=== PATIENT | female | born 2000 | race Hispanic/Latino ===

== ENCOUNTER 2023-03-15 16:55 | Emergency (ER) | payer SELFPAY ==
[2023-03-15 17:11] VITALS: BP 151/108; PULSE 113; RESP 18; TEMP 36.5; O2SAT 96
--- NOTE | 2023-03-15 19:37 | PC.NURSE ---
Pt called for blood draw, no answer
--- NOTE | 2023-03-15 19:51 | PC.NURSE ---
Patient did not answer page to come to a room X2
== END 2023-03-15 19:50 | disposition left against medical advice (07) ==
DX: R11.2 Nausea with vomiting, unspecified (principal)
CPT/HCPCS: 99199

== ENCOUNTER 2024-02-11 22:21 | Emergency (ER) | payer SELFPAY ==
--- NOTE | ~2024-02-11 | US_ITS ---
EXAMINATION: US OB <=14 wk fetus w TV DATE: 02/12/2024 04:30 INDICATION: Abdominal pain during at the transition from 1st-2nd trimester TECHNIQUE: Real-time pelvic ultrasound utilizing both a transvaginal and transabdominal probe was pe rformed. The interpreting radiologist was not present for the study. COMPARISON: None. FINDINGS: The uterus measures 13.9 x 7.7 x 8.7 cm. There is an intrauterine gestational sac. A yolk sac and fe cheryl pole are identified. The crown rump length measures 4.7 cm, which correlates with an estimated ge stational age of 11 weeks and 4 days. heart motion is identified measuring 175 beats per minute (bpm) by M-mode Doppler. The right ovary measures 3.4 x 2.3 x 2.2 cm. The left ovary measures 3.2 x 1.6 x 1.5 cm. After flow i dentified in both ovaries on color Doppler. There is no free fluid in the pelvis. IMPRESSION: 1. Single living fetus with heart rate of 175 bpm. 2. Gestational age by ultrasound of 11 weeks 4 day(s) +/- 7 day(s) with ultrasound estimated date of delivery (JOS[facility]) of 08/29/2024. Reviewed, dictated and finalized at location A. IMPRESSION: 1. Single living fetus with heart rate of 175 bpm. 2. Gestational age by ultrasound of 11 weeks 4 day(s) +/- 7 day(s) with ultras ound estimated date of delivery ([facility]OS[facility]) of 08/29/2024.
[2024-02-11 22:31] VITALS: BP 141/57; PULSE 81; RESP 17; TEMP 36.7; O2SAT 100
[2024-02-12 01:17] LABS: Basophils Percent Auto 0.3 % (0.2-1.2); Eosinophils Absolute Auto 0.2 K/mm3 (0-0.3); Eosinophils Percent Auto 1.8 % (0-4.4); Hematocrit 36.6 % (37.0-47.0); Immature Granulocyte Absolute 0.07 K/mm3 (0.00-0.031); Immature Granulocyte Percent A 0.7 % (0-0.5); Mean Corpuscular HGB Conc 32.8 g/dl (32-36); Mean Corpuscular Hemoglobin 28.5 pg (26-34); Mean Corpuscular Volume 86.9 fl (80-100); Mean Platelet Volume 11.9 fl (7.4-10.4); Monocytes Absolute Auto 0.9 K/mm3 (0.1-0.6); Neutrophils Absolute Auto 5.7 K/mm3 (1.3-6.7); Neutrophils Percent Auto 59.2 % (45.5-73.1); Platelet Count Result 214 k/mm3 (150-375); Red Blood Count 4.21 M/mm3 (4.2-5.4); Red Cell Distribution Width 13.5 % (11.5-14.5); White Blood Count 9.7 K/mm3 (4.5-10.0)
[2024-02-12 01:26] LABS: Alanine Aminotransferase 22 U/L (6-35); Albumin Level 4.4 g/dL (3.5-5.1); Alkaline Phosphatase 55 U/L (38-126); Anion Gap 9 mmol/L (4-12); Aspartate Amino Transferase 21 U/L (14-36); Bilirubin,Total 0.4 mg/dL (0.2-1.3); Blood Urea Nitrogen 12 mg/dL (7-17); Calcium 9.4 mg/dL (8.4-10.2); Carbon Dioxide 24 mmol/L (22-30); Chloride 104 mmol/L (98-107); Estimated CRCL calculation 152 ml/min; Estimated Glomerular Filt Rate > 60; Glucose 92 mg/dL (65-110); Lipase 87 U/L (23-300); Potassium 3.6 mmol/L (3.4-5.0); Sodium 137 mmol/L (137-145)
[2024-02-12 01:37] LABS: Appearance Urine Turbid (Clear); Bacteria Urine 1+ /hpf; Bilirubin Urine Negative (Negative); Blood Urine Negative (Negative); Color Urine Yellow (Yellow); Glucose Urine UA Negative (Negative); Ketones Urine Trace mg/dL (Negative); Leukocyte Esterase Ur Negative LEU/UL (Negative); Nitrate Urine Negative (Negative); Non Pathogenic Casts 0-2; Protein Urine Trace mg/dL (Negative); RBC Urine 0-2 /hpf (0-2); Specific Grav Ur 1.029 (1.001-1.035); Squamous Epithelial Cell Urine Occasional /hpf (Few); Urobilinogen Urine 0.2 mg/dL (<2.0); pH Urine 5.5 (5.0-9.0)
[2024-02-12 01:41] LABS: SPREG INTERNAL CONTROL Positive; Serum Qual hCG Positive
[2024-02-12 01:43] LABS: Add Urine Microscopic? YES
[2024-02-12] MEDS: SODIUM CHLORIDE 0.9% IV 1,000 ML 999 ML IV CONT (02:02)
[2024-02-12] MEDS: METOCLOPRAMIDE HCL INJ 10 MG/2 ML VIAL IV PUSH (02:02)
--- NOTE | 2024-02-12 03:58 | ED.GENADULT ---
HPI - General Adult General Chief complaint: Abdominal Pain Stated complaint: left sided abd pain, fever, n/v/d Time Seen by Provider: 02/12/24 01:41 History of Present Illness HPI narrative: Patient with female presents emergency department with chief complaint abdominal pain nausea vomiting. Patient reports he is unsure last menstrual period reports that she has a frequent dry her abdomen patient does report that she has had some diarrhea the patient states she has had no vaginal bleeding does report full her urine has been cloudy. Related Data Allergies Allergy/AdvReac Type Severity Reaction Status Date / Time No Known Allergies Allergy Verified 02/11/24 22:23 Review of Systems Review of Systems: A 10 system review of systems was completed on the patient and is negative except for what is stated in the HPI. Nursing and ancillary documentation was reviewed. Exam Narrative: GENERAL: Well-appearing, well-nourished, and in no acute distress. HEAD: Normocephalic, atraumatic. EYES: PERRLA and EOMI. ENT: Nares clear, no rhinorrhea or epistaxis. Mucous membranes moist. NECK: Supple. CHEST: Clear to auscultation. No respiratory distress. HEART: Regular rate and rhythm. No murmur heard. Normal peripheral pulses. ABDOMEN: Soft, diffusely tender to palpation, nondistended, normal active bowel sounds. EXTREMITIES: Normal range of motion. No edema. SKIN: Warm, dry, no rash. NEURO: No focal deficits. Alert and oriented x3. PSYCH: Normal mood and affect. Course Vital Signs Vital signs: Vital Signs Temperature 36.7 C 02/11/24 22:31 Pulse Rate 81 02/11/24 22:31 Respiratory Rate 17 02/11/24 22:31 Blood Pressure 141/57 H 02/11/24 22:31 Pulse Oximetry 100 02/11/24 22:31 Oxygen Delivery Room Air 02/11/24 22:31 Temperature 36.7 C 02/11/24 22:31 Pulse Rate 81 02/11/24 22:31 Respiratory Rate 17 02/11/24 22:31 Blood Pressure 141/57 H 02/11/24 22:31 Pulse Oximetry 100 02/11/24 22:31 Oxygen Delivery Room Air 02/11/24 22:31 Medical Decision Making [facility] Narrative Medical decision making narrative: Differential diagnosis includes ectopic , intra-abdominal infection, UTI Laboratory studies were obtained on the patient showed a normal CBC CMP was within normal limits [place] [address] Urinalysis showed 6-10 white blood cells and 1+ bacteria A ultrasound to evaluate for possible ectopic was ordered we do not have a result as of this time the patient states 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 and reports that she does not want to stay in the emergency depart Vital Signs Vital Signs: Vital Signs Temperature 36.7 C 02/11/24 22:31 Pulse Rate 81 02/11/24 22:31 Respiratory Rate 17 02/11/24 22:31 Blood Pressure 141/57 H 02/11/24 22:31 Pulse Oximetry 100 02/11/24 22:31 Oxygen Delivery Room Air 02/11/24 22:31 Temperature 36.7 C 02/11/24 22:31 Pulse Rate 81 02/11/24 22:31 Respiratory Rate 17 02/11/24 22:31 Blood Pressure 141/57 H 02/11/24 22:31 Pulse Oximetry 100 02/11/24 22:31 Oxygen Delivery Room Air 02/11/24 22:31 Lab Data 02/12/24 01:10 02/12/24 01:10 Labs: Lab Results 02/12/24 02/12/24 Range/Units 01:09 01:10 WBC 9.7 (4.5-10.0) K/mm3 RBC 4.21 (4.2-5.4) M/mm3 Hgb 12.0 (12.0-15.0) g/dL Hct 36.6 L (37.0-47.0) % MCV 86.9 (80-100) fl MCH 28.5 (26-34) pg MCHC 32.8 (32-36) g/dl RDW 13.5 (11.5-14.5) % Plt Count 214 (150-375) k/mm3 MPV 11.9 H (7.4-10.4) fl Immature Gran % (Auto) 0.7 H (0-0.5) % Neut % (Auto) 59.2 (45.5-73.1) % Lymph % (Auto) 29.0 (18.3-44.2) % [place] % (Auto) 9.0 H (2.6-8.5) % Eos % (Auto) 1.8 (0-4.4) % Baso % (Auto) 0.3 (0.2-1.2) % Lymph # (Auto) 2.80 (0.9-3.2) K/mm3 [place] # (Auto) 0.9 H (0.1-0.6) K/mm3 Eos # (Auto) 0.2 (0-0.3) K/mm3 Baso # (Auto) 0.0
== END 2024-02-12 03:24 | disposition left against medical advice (07) ==
PROVIDERS: Physician Assistant; Emergency Provider Emergency Medicine
DX: O26.90 Pregnancy related conditions, unspecified, unspecified trimester (principal); R10.9 Unspecified abdominal pain; Z3A.00 Weeks of gestation of pregnancy not specified
CPT/HCPCS: 36415; 76801; 76817; 80053; 81001; 81025; 83690; 84702; 84703; 85025; 87086; 96361; 96374; 99284; J2765; J7030